=== PATIENT | female | born 1945 | race Caucasian/White ===

== ENCOUNTER → 2016-12-11 | Outpatient (CLI) | payer MEDICARE, OTHER ==
[~2016-12-11] MED LIST: ALPR1TAB2 PO; AMIO200T42 PO; AMOX1TAB64 PO; APIX5TAB PO; ASPI-496 PO; CLON0.1T PO; FURO-93 PO; GLIM2TAB2 PO; LEVO100T PO; LIOT5TAB10 PO; LISI-167 PO; MELO15TA6 PO; METF500T4 PO; POTA20TA89 PO; REGADENOSON 0.4 MG/5 ML SYRINGE ONE
== END | disposition home or self-care (01) ==
LOC: CFH 08:21
PROVIDERS: ATTEND Nurse Practitioner Family
DX: I48.92 Unspecified atrial flutter (principal); I10 Essential (primary) hypertension
CPT/HCPCS: 78452; 93017; A9502; J2785